=== PATIENT | male | born 1965 | race Caucasian/White ===

== ENCOUNTER 2022-12-20 07:37 | Outpatient (REF) | payer BC, SELFPAY ==
--- NOTE | ~2022-12-20 | CT_ITS ---
EXAMINATION: CT SOFT TISSUE NECK WITH CONTRAST CLINICAL INFORMATION: Right parotid tumor. COMPARISON: None available. TECHNIQUE: Following the intravenous administration of 100 mL of Omnipaque 350 intravenous contrast, helical imaging was performed in the axial plane with generation of coronal and sagittal reformatted images. This CT examination was performed using dose optimization techniques as appropriate, variously including the following: *Automated exposure control *Adjustment of mA and/or kV according to patient size (this includes techniques or standardized protocols for targeted exams where dose is matched to indication/reason for exam; i.e. extremities or head) *Use of iterative reconstruction technique DLP: 463 mGy-cm FINDINGS: There is normal symmetry of bilateral parotid glands with intraparotid 1 cm lymph nodes. Most of the parotid gland is fatty infiltrated. No focal enhancing mass visualized. The submandibular glands are symmetrical and normal. The thyroid lobes are symmetrical and normal. There are numerous bilateral neck lymph nodes. The largest left level 3 lymph node measures 1.2 cm rest of the lymph nodes are less than 1 cm. There is normal symmetry of optic globe, optic nerve. Bilateral paranasal sinuses are well-aerated with small polyps or retention cyst bilateral maxillary sinus. The mastoid air cells are well-aerated. The nasal cavity and nasopharyngeal airway is widely patent. The maxillofacial soft tissues are normal. On the visualized intracranial images no abnormalities seen. The lung apices are clear. CT/CT soft tissue neck w IV con IMPRESSION: No parotid tumor seen. There is fatty infiltration of parotid glands with right intraparotid 1 cm lymph nodes. They are nonspecific.
[2022-12-20] MEDS: iohexoL 350 MG/ML 100 ML INFUS..BTL 60 ML IV (08:46)
[2022-12-21 08:49] LABS: Creatinine POC 1.3 mg/dL (0.5-1.4); GFR POC > 60
== END 2022-12-20 07:38 | disposition home or self-care (01) ==
LOC: HO.CT 07:37
PROVIDERS: PCP Family Medicine; Visit Provider Otolaryngology
DX: D11.0 Benign neoplasm of parotid gland (principal)
CPT/HCPCS: 70491; 82565; Q9967